=== PATIENT | male | born 1960 | race Caucasian/White ===

== ENCOUNTER 2023-05-31 10:14 | Inpatient (IN) | payer OTHER, SELFPAY ==
[2023-05-31] VITALS (9 sets, daily range): BP systolic 102–167; BP diastolic 56–89; PULSE 72–87; RESP 15–18; TEMP 36.7–37.3; O2SAT 95–99; BMI 29.0; BMI 28.8
[2023-05-31 10:43] LABS: Add Manual Diff / Slide Review NO; Basophils Absolute Auto 0 /uL (0-100); Basophils Percent Auto 0.4 % (0-2); Eosinophils Absolute Auto 0 /uL (0-450); Hematocrit 38.8 % (41-53); Hemoglobin 13.4 g/dL (13.5-17.5); Lymphocytes Absolute Auto 1000 /uL (1100-4500); Lymphocytes Percent Auto 9.2 % (25-40); Mean Corpuscular HGB Conc 34.5 % (30-36); Mean Corpuscular Hemoglobin 31.3 PG (26-34); Mean Corpuscular Volume 90.7 fL (80-100); Monocytes Absolute Auto 800 /uL (0-900); Monocytes Percent Auto 8.1 % (3-14); Neutrophils Absolute Auto 8600 /uL (1500-7000); Neutrophils Percent Auto 82.3 % (50-75); Platelet Count 195 X10^3/uL (150-400); Red Blood Cell Count 4.28 X10^6/uL (4.5-5.9); Red Cell Distribution Width 12.9 % (11.6-14.8); White Blood Cell Count 10.4 X10^3/uL (4.5-11.0)
[2023-05-31 10:53] LABS: Alanine Aminotransferase 38 IU/L (<50); Albumin 4.5 g/dL (3.5-5.0); Albumin Globulin Ratio 1.4 (1.0-2.8); Alkaline Phosphatase 53 U/L (38-126); Aspartate Aminotransferase 40 IU/L (17-59); BUN Creatinine Ratio 26.7 (6-22); Bilirubin Total 0.4 mg/dL (0.2-1.3); Blood Urea Nitrogen 20 mg/dL (9-20); Calcium 8.9 mg/dL (8.4-10.2); Carbon Dioxide 31 mmol/L (22-32); Chloride 100 mmol/L (98-107); Estimated Glomerular Filt Rate > 60 mL/min (>60); Globulin 3.2 g/dL (1.7-4.1); Glucose 105 mg/dL (80-110); HEMOLYSIS < 15 (0-50); Lipase 187 U/L (23-300); Potassium 4.5 mmol/L (3.4-5.1); Sodium 136 mmol/L (137-145); Total Protein 7.7 g/dL (6.3-8.2)
--- NOTE | 2023-05-31 11:00 | PC.NURSE ---
Katherien with [employer] on the phone asking for update about patient. asked patient and he is okay if we share information with them for his work. 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 informed her he was sent by walk in clinic due to need for imaging. we have only collected blood work and are waiting for provider to go into room and exam patient at this moment.
--- NOTE | 2023-05-31 13:55 | ED_ITS ---
HPI - Abdominal Pain General Chief Complaint: Abdominal Pain Stated Complaint: central ABD pain Time Seen by Provider: 05/31/23 13:55 Source: patient Mode of arrival: Ambulatory Limitations: no limitations History of Present Illness HPI narrative: 63-year-old male with history of diabetes and MS, patient presents today states he had onset of nausea and vomiting about 15 minutes after midnight, abdominal pain which she describes as sort of periumbilical still present but improved. He states it was 7/10 he put a 5-10 currently. He states is a little bit down towards the suprapubic area. Denies any fevers or chills. Denies any diarrhea constipation had been stooling regularly. Denies dysuria urgency or frequency. No back or flank pain. No syncope or lightheadedness. No fevers chills or sweats. No known sick contacts. Patient states he has not had any major surgeries. Patient has no known drug allergies. Occasionally chews tobacco, no alcohol, no illicit. Patient's primary care is in [facility] in [place]. He lives in [place]. Related Data Home Medications Medication Instructions Recorded Confirmed blood-glucose sensor (Dexcom G6 05/31/23 05/31/23 Sensor device) blood-glucose transmitter (Dexcom #1 ea 05/31/23 05/31/23 G6 Transmitter device) insulin aspart U-100 100 unit/mL 0 - 8 unit SUBCUT DAILY 05/31/23 05/31/23 (3 mL) subcutaneous pen insulin glargine-yfgn 100 unit/mL 42 unit SUBCUT QPM 05/31/23 05/31/23 (3 mL) subcutaneous pen (Semglee (insulin glargine-yfgn) Pen) interferon beta-1b 0.3 mg 0.3 mg SUBCUT DAILY 05/31/23 05/31/23 subcutaneous kit (Betaseron) lisinopril 5 mg tablet 5 mg PO DAILY 05/31/23 05/31/23 metformin 500 mg tablet 500 mg PO BID 05/31/23 05/31/23 pen needle, diabetic 31 gauge x #100 ea 05/31/23 05/31/23 Allergies Allergy/AdvReac Type Severity Reaction Status Date / Time No Known Drug Allergies Allergy Verified 05/31/23 10:33 Review of Systems Review of Systems ROS Unobtainable: All systems reviewed & are unremarkable except as noted in HPI and below Patient History Social History household members: none Smoking Status: Former smoker alcohol intake: current Smoking Status: Former smoker alcohol intake frequency: holidays/special occasions only Substance Use Type: does not use Exam Narrative Exam Narrative: GENERAL: Alert and oriented x three, well-nourished male in mild distress. Patient was sleeping initially awakens easily. HEENT: Head normocephalic, atraumatic, EOMI, pupils reactive, face symmetric, moist mucous membranes NECK: Supple, full range of motion CARDIOVASCULAR: Regular rate and rhythm without murmurs, rubs or gallops. RESPIRATORY: Breath sounds equal bilaterally, no wheezes rales or rhonchi. No tachypnea. No accessory muscle use. ABDOMEN: Soft, positive right lower quadrant tenderness. Normoactive bowel sounds all 4 quadrants. No guarding or rebound, rigidity, no mass, nondistended. No pulsatile mass or bruit. : No CVA tenderness EXTREMITIES: Normal range of motion, no clubbing or edema. Neurovascularly intact. Normal gait. NEUROLOGICAL: Cranial nerves II through XII grossly intact. Moving all extremities SKIN: Warm, dry, no petechiae, no rashes or lesions. Initial Vital Signs Initial Vital Signs: Vital Signs Temperature 98.1 F 05/31/23 10:15 Pulse Rate 87 05/31/23 10:15 Respiratory Rate 15 05/31/23 10:15 Blood Pressure 127/87 05/31/23 10:15 Pulse Oximetry 98 05/31/23 10:15 Oxygen Delivery Method Room Air 05/31/23 10:15 Course Orders Ordered: ED Orders 05/31/23 14:24 CT abdomen pelvis w con Stat Acetaminophen (Acetaminophen 325 Mg Tablet) 650 mg PO Q6H [facility] Last Admin: 05/31/23 17:09 Dose: 650 mg Documented By: SB Celecoxib (Celecoxib 200 Mg Capsule) 200 mg PO BID [facility] Lactated Ringer's (Lactated Ringers) 1,000 mls @ 125 mls/hr IV CONT LEONCIO Last Infusion: 05/31/23 16:13 Dose: 0 mls/hr Documented By: Infusion: 05/31/23 16:06 Dose: 0 mls/hr Documented By: Admin: 05/31/23 16:06 Dose: 125 mls/hr Documented By: ABDELRAHMAN Sodium Chloride (Normal Saline 0.9%) 1,000 mls @ 100 mls/hr IV CONT LEONCIO Last Admin: 05/31/23 17:23 Dose: 100 mls/hr Documented By: Infusion: 05/31/23 17:23 Dose: 100 mls/hr Documented By: Admin: 05/31/23 17:08 Dose: 100 mls/hr Documented By: ROMINA Piperacillin Sod/Tazobactam (Sod 3.375 gm/ Sodium Chloride) 100 mls @ 25 mls/hr IV Q8H [facility] Insulin Human Regular (Insulin Regular 100 Unit/Ml 3 Ml Vial) 0 unit SUBCUT Q6H [facility]; Protocol Last Admin: 05/31/23 17:23 Dose: Not Given Documented By: ROMINA Lisinopril (Lisinopril 5 Mg Tablet) 5 mg PO DAILY [facility] Metformin HCl (Metformin Hcl 500 Mg Tablet) 500 mg PO BID [facility] Morphine Sulfate (Morphine 4 Mg/Ml Inj) 3 mg IV Q4HR PRN PRN Reason: Pain, Severe (7-10) Naloxone HCl (Naloxone 0.4 Mg/Ml Vial) 0.2 mg IV Q2MIN PRN PRN Reason: Opiate Reversal Ondansetron HCl (Ondansetron 4 Mg/2 Ml Inj) 4 mg IV NOW PRN PRN Reason: Nausea And Vomiting Ondansetron HCl (Ondansetron 4 Mg/2 Ml Inj) 4 mg IV Q8HR PRN PRN Reason: Nausea And Vomiting Oxycodone HCl (Oxycodone Ir 5 Mg Tablet) 5 mg PO Q3H PRN PRN Reason: Pain, Moderate (4-6) Last Admin: 05/31/23 17:17 Dose: 5 mg Documented By: ROMINA Pantoprazole Sodium (Pantoprazole Dr 20 Mg Tablet) 20 mg PO 0600 [facility] Last Admin: 05/31/23 17:17 Dose: 20 mg Documented By: ROMINA Discontinued Medications Piperacillin Sod/Tazobactam (Sod 4.5 gm/ Sodium Chloride) 100 mls @ 200 mls/hr IV NOW ONE Stop: 05/31/23 15:11 Last Infusion: 05/31/23 16:25 Dose: 0 mls/hr Documented By: Admin: 05/31/23 15:46 Dose: 200 mls/hr Documented By: SPF Vital Signs Vital signs: Vital Signs - 8 hr 05/31/23 14:50 05/31/23 14:52 05/31/23 14:52 Pulse Rate 77 75 Blood Pressure 159/89 H Pulse Oximetry 96 99 Oxygen Delivery Method Room Air 05/31/23 15:00 05/31/23 15:00 Pulse Rate 72 Blood Pressure 150/81 H Pulse Oximetry 97 Oxygen Delivery Method MDM - Abdominal Pain Lab Data 05/31/23 10:27 05/31/23 10:27 Labs: Lab Results 05/31/23 05/31/23 Range/Units 10:27 10:27 WBC 10.4 (4.5-11.0) X10^3/uL RBC 4.28 L (4.5-5.9) X10^6/uL Hgb 13.4 L (13.5-17.5) g/dL Hct 38.8 L (41-53) % MCV 90.7 (80-100) fL MCH 31.3 (26-34) PG MCHC 34.5 (30-36) % RDW 12.9 (11.6-14.8) % Plt Count 195 (150-400) X10^3/uL Neut % (Auto) 82.3 H (50-75) % Lymph % (Auto) 9.2 L (25-40) % [place] % (Auto) 8.1 (3-14) % Eos % (Auto) 0.0 L (2-4) % Baso % (Auto) 0.4 (0-2) % Neut # (Auto) 8600 H (7542-7135) /uL Lymph # (Auto) 1000 L (1065-1773) /uL [place] # (Auto) 800 (0-900) /uL Eos # (Auto) 0 (0-450) /uL Baso # (Auto) 0 (0-100) /uL Sodium 136 L (137-145) mmol/L Potassium 4.5 (3.4-5.1) mmol/L Chloride 100 (98-107) mmol/L Carbon Dioxide 31 (22-32) mmol/L BUN 20 (9-20) mg/dL Creatinine 0.75 (0.66-1.25) mg/dL Estimated GFR > 60 (>60) mL/min BUN/Creatinine Ratio 26.7 H (6-22) Glucose 105 (80-110) mg/dL Calcium 8.9 (8.4-10.2) mg/dL Total Bilirubin 0.4 (0.2-1.3) mg/dL AST 40 (17-59) IU/L ALT 38 (<50) IU/L Alkaline Phosphatase 53 (38-126) U/L Total Protein 7.7 (6.3-8.2) g/dL Albumin 4.5 (3.5-5.0) g/dL Globulin 3.2 (1.7-4.1) g/dL Albumin/Globulin Ratio 1.4 (1.0-2.8) Lipase 187 (23-300) U/L Point of care testing: Point of Care Testing Glucose POC 90 Urine Dip Bedside Urine Glucose Negative Bedside Urine Bilirubin - Negative Bedside Urine Ketone +/- 5 Urine Specific [place] 1.025 Bedside Urine Occult Blood - Negative Bedside Urine pH 6.0 Bedside Urine Protein - Negative Bedside Urine Urobilinogen - Negative Bedside Urine Nitrite - Negative Bedside Urine Leukocytes - Negative Esterase Imaging Data CT scan - abdomen/pelvis: Radiologist's Impression: Chester Robertson??63??M??1960 ? Allergy/Adv: No Known Drug Allergies Close Abdomen/Pelvis CT (Signed) Francine Cohenic - 05/31/23 [place] [address] CT Scan Report Signed Patient: Chester Robertson MR#: [id number] : 1960 Acct:[id number] Age/Sex: 63 / M Date of Service: 05/31/23 Loc: ED Accession Number: [id number] ?? Procedure: CT abdomen pelvis w con Ordering Provider: Lucretia Altman D.O. PROCEDURE:? CT ABDOMEN PELVIS W CON ? INDICATIONS:? n/v/abd pain, +RLQ ? TECHNIQUE:? After the administration of intravenous contrast, axial sections acquired from the lung bases to the pubic symphysis.? Coronal and sagittal reformats were performed.? For radiation dose reduction, the following was used:? automated exposure control, adjustment of mA and/or kV according to patient size.? ? COMPARISON:? None. ? FINDINGS:? Image quality:? Excellent.? ? Lung bases:? Unremarkable. Heart:? No significant findings. ? ABDOMEN: Liver:? Unremarkable.? ? Gallbladder:? Unremarkable.? ? Biliary ducts:? Unremarkable.? ? Pancreas:? Unremarkable.? ? Spleen:? Unremarkable.? ? Adrenal Glands:? Unremarkable.? ? Kidneys and Ureters:? Unremarkable.? ? ? Stomach and Bowel:? Mild diverticulosis without evidence of diverticulitis.? Acute appendicitis.? Extensive inflammatory change in the adjacent fat suggests possible rupture.? There is a small amount of fluid tracking inferior to the appendix. Peritoneum:? There is minimal fluid tracking along the general vicinity of the appendix.? No free air.? ? Ventral Wall: ? No hernias.? Abdominal Nodes:? No retroperitoneal or mesenteric adenopathy by size criteria.? Vessels:? Aorta and inferior vena cava are normal in size.? ? PELVIS: Pelvic Organs:? Unremarkable.? ? Bladder:? Unremarkable.? ? Pelvic Nodes: No enlarged lymph nodes.? Miscellaneous: No hernias are seen. ? ? ? Bones:? Mild lumbar degenerative change.? No lytic or blastic bony lesions.? No compression fractures. ? ? IMPRESSION:? Acute appendicitis, likely recently ruptured.? The suggestion of rupture is based on inflammation and fluid adjacent to the appendix.? There is no adjacent free air. ? ? Dictated by: Waldo Cohen M.D. on 05/31/2023 at 15:02 ? ? Approved by: Waldo Cohen M.D. on 05/31/2023 at 15:06?? ECG Data Attestation: I personally reviewed and interpreted this ECG as follows: Interpretation: Sinus rhythm rate of 73 NH 146 QRS of 112 QTC 451[address] No acute ST elevation or depression noted. [facility] Narrative Medical decision making narrative: 63-year-old male presents with sudden onset nausea and vomiting overnight abdominal pain. Patient is quite tender in the right lower quadrant examination, no back or flank pain, labs show a white count of 10 hemoglobin 13.4, crit 38 normal platelets at 195. Sodium is 136 normal electrolytes, renal function BUN normal with negative LFTs. Point of care urine is negative except for 1+ ketones. Patient's has pretty localized tenderness in the right lower quadrant. He states he does still have his appendix. Discussed with patient would recommend CT imaging to evaluate. Patient's glucose was 60 arrival, he felt a little bit ill so was given Zofran, was given juice and ate a kind bar patient felt much improved. He has not had anymore vomiting since then. This was upon arrival. Patient's CT abdomen pelvis shows appendicitis possible rupture. I spoke with Dr. Clark who accepts for admission. She discussed with patient at this time they are going to continue with IV antibiotics. Discharge Plan Departure Patient Disposition: Admitted As Inpatient Clinical Impression: Appendicitis Admit Date/Time: 05/31/23 15:13 Admit Provider: Zaira Clark
--- NOTE | 2023-05-31 14:24 | DI.CT.S_ITS ---
PROCEDURE: CT ABDOMEN PELVIS W CON INDICATIONS: n/v/abd pain, +RLQ TECHNIQUE: After the administration of intravenous contrast, axial sections acquired from the lung bases to the pubic symphysis. Coronal and sagittal reformats were performed. For radiation dose reduction, the following was used: automated exposure control, adjustment of mA and/or kV according to patient size. COMPARISON: None. FINDINGS: Image quality: Excellent. Lung bases: Unremarkable. Heart: No significant findings. ABDOMEN: Liver: Unremarkable. Gallbladder: Unremarkable. Biliary ducts: Unremarkable. Pancreas: Unremarkable. Spleen: Unremarkable. Adrenal Glands: Unremarkable. Kidneys and Ureters: Unremarkable. Stomach and Bowel: Mild diverticulosis without evidence of diverticulitis. Acute appendicitis. Extensive inflammatory change in the adjacent fat suggests possible rupture. There is a small amount of fluid tracking inferior to the appendix. Peritoneum: There is minimal fluid tracking along the general vicinity of the appendix. No free air. Ventral Wall: No hernias. Abdominal Nodes: No retroperitoneal or mesenteric adenopathy by size criteria. Vessels: Aorta and inferior vena cava are normal in size. PELVIS: Pelvic Organs: Unremarkable. Bladder: Unremarkable. Pelvic Nodes: No enlarged lymph nodes. Miscellaneous: No hernias are seen. Bones: Mild lumbar degenerative change. No lytic or blastic bony lesions. No compression fractures. IMPRESSION: Acute appendicitis, likely recently ruptured. The suggestion of rupture is based on inflammation and fluid adjacent to the appendix. There is no adjacent free air. Dictated by: Waldo Cohen M.D. on 05/31/2023 at 15:02 Approved by: Waldo Cohen M.D. on 05/31/2023 at 15:06
[2023-05-31] MEDS: PIPERACILLIN/TAZO 4.5 GM in SODIUM CHLORIDE 0.9% 100 ML IV (15:46)
[2023-05-31] MEDS: LACTATED RINGERS 1,000 ML 125 ML IV (16:06)
[2023-05-31] MEDS: SODIUM CHLORIDE 0.9% 1,000 ML 100 ML IV ×2 (17:08→17:23)
[2023-05-31] MEDS: ACETAMINOPHEN 325 MG TABLET 650 MG PO ×2 (17:09→22:39)
[2023-05-31] MEDS: OXYCODONE IR 5 MG TABLET PO (17:17)
[2023-05-31] MEDS: PANTOPRAZOLE DR 20 MG TABLET PO (17:17)
--- NOTE | 2023-05-31 17:39 | P.HP_ITS ---
History of Present Illness History of Present Illness Date Patient Seen: 05/31/23 Time Patient Seen: 16:00 Date of Onset of Symptoms: 05/30/23 Chief complaint: central ABD pain Narrative: Patient reports awakened after midnight with abdominal pain, central, intense w/o relief. H/o MS and insulin dependent diabetes. Presented hypoglycemic. CT scan reviewed and I agree with preforated appendicitis, no fecal lith. No abscess, perforation contained. [facility] Social History household members: none Smoking Status: Former smoker alcohol intake: current Meds Home Medications and Allergies Home Medications Medication Instructions Recorded Confirmed Type blood-glucose sensor (Dexcom G6 05/31/23 05/31/23 History Sensor device) blood-glucose transmitter (Dexcom #1 ea 05/31/23 05/31/23 History G6 Transmitter device) insulin aspart U-100 100 unit/mL 0 - 8 unit SUBCUT DAILY 05/31/23 05/31/23 History (3 mL) subcutaneous pen insulin glargine-yfgn 100 unit/mL 42 unit SUBCUT QPM 05/31/23 05/31/23 History (3 mL) subcutaneous pen (Semglee (insulin glargine-yfgn) Pen) interferon beta-1b 0.3 mg 0.3 mg SUBCUT DAILY 05/31/23 05/31/23 History subcutaneous kit (Betaseron) lisinopril 5 mg tablet 5 mg PO DAILY 05/31/23 05/31/23 History metformin 500 mg tablet 500 mg PO BID 05/31/23 05/31/23 History pen needle, diabetic 31 gauge x #100 ea 05/31/23 05/31/23 History Allergies Allergy/AdvReac Type Severity Reaction Status Date / Time No Known Drug Allergies Allergy Verified 05/31/23 10:33 Review of Systems Review of Systems ROS: Yes All systems reviewed with the patient and are negative except as otherwise documented Exam Vital Signs (past 8 hours): - 05/31/23 10:15 05/31/23 11:19 05/31/23 11:19 Temperature 98.1 F Pulse Rate 87 77 Respiratory Rate 15 Blood Pressure 127/87 131/77 Pulse Oximetry 98 96 Oxygen Delivery Method Room Air 05/31/23 14:50 05/31/23 14:52 05/31/23 14:52 Temperature Pulse Rate 77 75 Respiratory Rate Blood Pressure 159/89 H Pulse Oximetry 96 99 Oxygen Delivery Method Room Air 05/31/23 15:00 05/31/23 15:00 05/31/23 15:30 Temperature Pulse Rate 72 77 Respiratory Rate Blood Pressure 150/81 H Pulse Oximetry 97 98 Oxygen Delivery Method 05/31/23 15:53 05/31/23 15:53 05/31/23 16:00 Temperature Pulse Rate 74 Respiratory Rate Blood Pressure 167/79 H 163/85 H Pulse Oximetry 99 Oxygen Delivery Method 05/31/23 16:00 Temperature Pulse Rate 72 Respiratory Rate Blood Pressure Pulse Oximetry 98 Oxygen Delivery Method Room Air Oxygen Delivery Method Room Air Narrative Exam Narrative: 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, lives in [facility] General: cooperative, healthy appearing and comfortable Nutritional Appearance: average body habitus Orientation: alert, awake and oriented x3 HENMT Head: normocephalic and atraumatic Ears: hearing grossly normal bilaterally Eyes General: appearance normal, both eyes and all related structures Sclera: sclerae normal Neck Neck: normal visual inspection and trachea midline Resp Effort & Inspection: normal respiratory effort and able to speak in complete sentences Cardio Rate: regular rate Rhythm: regular rhythm GI Palpation: soft Other: no guarding, RLQ tenderness Skin General: turgor normal Rashes: no rashes Neuro Cognition: normal cognition Psych Affect: normal affect and animated Attitude: cooperative Judgment: judgment good Objective Labs 05/31/23 10:27 05/31/23 10:27 Labs: Laboratory Results - last 24 hr 05/31/23 05/31/23 10:27 10:27 WBC 10.4 RBC 4.28 L Hgb 13.4 L Hct 38.8 L MCV 90.7 MCH 31.3 MCHC 34.5 RDW 12.9 Plt Count 195 Neut % (Auto) 82.3 H Lymph % (Auto) 9.2 L [place] % (Auto) 8.1 Eos % (Auto) 0.0 L Baso % (Auto) 0.4 Neut # (Auto) 8600 H Lymph # (Auto) 1000 L [place] # (Auto) 800 Eos # (Auto) 0 Baso # (Auto) 0 Sodium 136 L Potassium 4.5 Chloride 100 Carbon Dioxide 31 BUN 20 Creatinine 0.75 Estimated GFR > 60 BUN/Creatinine Ratio 26.7 H Glucose 105 Calcium 8.9 Total Bilirubin 0.4 AST 40 ALT 38 Alkaline Phosphatase 53 Total Protein 7.7 Albumin 4.5 Globulin 3.2 Albumin/Globulin Ratio 1.4 Lipase 187 Assessment & Plan Assessment & Plan narrative: Perforated appendicitis likely masked discomfort due to MS and abdominal pain really started after perforation. Has insulin dependent diabetes. Hypoglycemia corrected with juice. Plan: informed discussion of medical management vs surgery and even delayed (interval appendectomy). He would like to try medical management in order to go back to the boat. Admit for IV antibiotics, repeat labs and exam Quality VTE Deep Vein Thrombosis/Pulmonary Embolism Present on Admission: No
[2023-05-31] MEDS: PIPERACILLIN/TAZO 3.375 GM in SODIUM CHLORIDE 0.9% 100 ML IV (20:30)
[2023-05-31] MEDS: CELECOXIB 200 MG CAPSULE PO (20:30)
[2023-05-31] MEDS: METFORMIN HCL 500 MG TABLET PO (20:30)
[2023-06-01] VITALS (7 sets, daily range): BP systolic 92–135; BP diastolic 52–81; PULSE 56–77; RESP 16–20; TEMP 35.7–36.8; O2SAT 95–98
[2023-06-01] MEDS: PIPERACILLIN/TAZO 3.375 GM in SODIUM CHLORIDE 0.9% 100 ML IV ×3 (04:14→20:15)
[2023-06-01] MEDS: ACETAMINOPHEN 325 MG TABLET 650 MG PO ×3 (04:14→16:53)
[2023-06-01] MEDS: PANTOPRAZOLE DR 20 MG TABLET PO (05:51)
[2023-06-01 06:33] LABS: Add Manual Diff / Slide Review NO; Basophils Absolute Auto 100 /uL (0-100); Basophils Percent Auto 0.6 % (0-2); Eosinophils Absolute Auto 0 /uL (0-450); Eosinophils Percent Auto 0.3 % (2-4); Hematocrit 36.8 % (41-53); Hemoglobin 12.6 g/dL (13.5-17.5); Lymphocytes Absolute Auto 1200 /uL (1100-4500); Lymphocytes Percent Auto 13.3 % (25-40); Mean Corpuscular HGB Conc 34.2 % (30-36); Mean Corpuscular Hemoglobin 31.2 PG (26-34); Mean Corpuscular Volume 91.4 fL (80-100); Monocytes Absolute Auto 1000 /uL (0-900); Monocytes Percent Auto 10.8 % (3-14); Neutrophils Absolute Auto 7000 /uL (1500-7000); Platelet Count 159 X10^3/uL (150-400); Red Blood Cell Count 4.03 X10^6/uL (4.5-5.9); Red Cell Distribution Width 13.2 % (11.6-14.8); White Blood Cell Count 9.3 X10^3/uL (4.5-11.0)
[2023-06-01] MEDS: lisinopriL 5 MG TABLET PO (08:26)
[2023-06-01] MEDS: METFORMIN HCL 500 MG TABLET PO ×2 (08:27→21:01)
[2023-06-01] MEDS: CELECOXIB 200 MG CAPSULE PO ×2 (08:31→21:01)
[2023-06-01] MEDS: OXYCODONE IR 5 MG TABLET PO ×2 (08:31→16:53)
--- NOTE | 2023-06-01 11:13 | PM.PN.1 ---
Subjective Subjective Date Patient Seen: 06/01/23 Time Patient Seen: 11:13 Interval history: pain is some better. Exam Vital Signs (past 8 hours): - 06/01/23 04:19 06/01/23 08:26 06/01/23 08:00 Temperature 97.1 F L 98.0 F Pulse Rate 56 L 75 75 Respiratory Rate 18 17 Blood Pressure 96/52 L 112/75 112/75 Pulse Oximetry 98 97 Oxygen Flow Rate 0 0 Oxygen Delivery Method Room Air Oxygen Flow Rate 0 Narrative Exam Narrative: abdomen soft, mild RLQ tenderness, no guarding Objective Labs 06/01/23 06:20 05/31/23 10:27 Labs: Laboratory Results - last 24 hr 06/01/23 06:20 WBC 9.3 RBC 4.03 L Hgb 12.6 L Hct 36.8 L MCV 91.4 MCH 31.2 MCHC 34.2 RDW 13.2 Plt Count 159 Neut % (Auto) 75.0 Lymph % (Auto) 13.3 L [place] % (Auto) 10.8 Eos % (Auto) 0.3 L Baso % (Auto) 0.6 Neut # (Auto) 7000 Lymph # (Auto) 1200 [place] # (Auto) 1000 H Eos # (Auto) 0 Baso # (Auto) 100 PFSH Social History household members: none Smoking Status: Former smoker alcohol intake: current Assessment & Plan Assessment and plan (1) Appendicitis: Status: Acute Assessment & Plan narrative: Ruptured appendicitis that appears to be responding to antibiotics with the exception of a more pronounced decrease in pain. He has only been on antibiotics for 12 hours now. Plan: continue antibiotics and re evaluate in the am. Time Spent With Patient Time with patient: less than 30 minutes Quality VTE Deep Vein Thrombosis/Pulmonary Embolism Present on Admission: No
[2023-06-01] MEDS: INSULIN LISPRO 100 UNIT/ML 3ML VIAL SUBCUT ×3 (11:27→21:02)
[2023-06-01] MEDS: SODIUM CHLORIDE 0.9% 1,000 ML 100 ML IV (16:54)
[2023-06-01] MEDS: INSULIN GLARGINE 100 UNIT/ML 3ML PEN 42 UNIT SUBCUT (21:02)
[2023-06-02] VITALS (13 sets, daily range): BP systolic 102–156; BP diastolic 53–84; PULSE 60–86; RESP 12–18; TEMP 36.3–37.1; O2SAT 94–99
--- NOTE | 2023-06-02 | PATH_ITS ---
[facility] Accession Number: [id number] No. of containers..01 Tissue . 01 Material submitted: . appendix - APPENDIX . 01 Diagnosis: Vermiform Appendix, Appendectomy: Acute suppurative appendicitis and periappendicitis with probable perforation site. Negative for neoplasia. MRV 06/14/2023 1359 Local . 01 Electronically signed: . Zaira Phillips MD, Pathologist NPI- [id number] . 01 Gross description: . The specimen is received in formalin labeled with the patient's name, , and appendix consists of multiple fragments of possible appendix with no grossly identified margin or distal tip, aggregating to 6.2 x 5.9 x 2.1 cm. Sectioning reveals a staple line with attached presumed lumen consistent with possible margin that is inked blue. The lumen is discontinuous with minimal brown semi-solid contents, and averages 0.3 cm in diameter. The bhatti are lu-alonso, diffusely disrupted, average 0.3 cm thick with no discrete lesions identified. Jet Pilot sections to include the presumed margin, one-half of the possible bisected distal tip, and cross section are submitted in cassette A1. ([id number]) /MRV 06/06/2023 1800 Local . 01 Pathologist provided ICD-10: K35.80 . 01 CPT . 533669 Specimen Comment: A courtesy copy of this report has been sent to [phone] Performed at: 01 [facility] [address] [place] [address] [id number] MD Constantine Perez MD Phone: [phone]
[2023-06-02] MEDS: SODIUM CHLORIDE 0.9% 1,000 ML 100 ML IV ×2 (00:03→14:56)
--- NOTE | 2023-06-02 00:58 | PC.NURSE ---
Patient is alert and oriented. Breath sounds CTA with RA sat of 95%. HRR. Denies nausea. BT present and abdomen is soft but tender over RLQ; describes pain as sharp but intermittent and declined offer of pain medication although rates pain as 3/10. Requested not to be awakened for 2230 dose of tylenol. Denies dysuria with urination. Independent with mobility and is steady on feet; declines use of SCD's. Fall risk score is moderate but patient is oriented and steady on feet so alarm is not in use at this time. Verbalizes understanding of being NPO after 0000 for surgery in a.m.
[2023-06-02] MEDS: PIPERACILLIN/TAZO 3.375 GM in SODIUM CHLORIDE 0.9% 100 ML IV (04:09)
[2023-06-02 06:47] LABS: Hematocrit 35.7 % (41-53); Hemoglobin 12.4 g/dL (13.5-17.5); Mean Corpuscular HGB Conc 34.7 % (30-36); Mean Corpuscular Hemoglobin 31.7 PG (26-34); Mean Corpuscular Volume 91.4 fL (80-100); Platelet Count 155 X10^3/uL (150-400); Red Blood Cell Count 3.91 X10^6/uL (4.5-5.9); White Blood Cell Count 7.6 X10^3/uL (4.5-11.0)
[2023-06-02 08:29] LABS: Neutrophils Absolute Manual 6460 /uL (3000-5900); RBC Morphology Normal Morphology; Total Cells Counted 100
--- NOTE | 2023-06-02 09:16 | PM.PN.1 ---
Subjective Subjective Date Patient Seen: 06/02/23 Time Patient Seen: 09:16 Interval history: symptoms not markedly improved. Exam Vital Signs (past 8 hours): - 06/02/23 04:20 Temperature 98.4 F Pulse Rate 74 Respiratory Rate 18 Blood Pressure 128/76 Pulse Oximetry 96 Oxygen Flow Rate 0 Oxygen Delivery Method Room Air Oxygen Flow Rate 0 Narrative Exam Narrative: tenderness RLQ persist but slightly better Objective Labs 06/02/23 06:31 05/31/23 10:27 Labs: Laboratory Results - last 24 hr 06/02/23 06:31 WBC 7.6 RBC 3.91 L Hgb 12.4 L Hct 35.7 L MCV 91.4 MCH 31.7 MCHC 34.7 RDW 13.0 Plt Count 155 Total Counted 100 Seg Neutrophils % 85.0 H Lymphocytes % (Manual) 8.0 L Monocytes % (Manual) 6.0 Basophils % (Manual) 1.0 Neutrophils # (Manual) 6460 H RBC Morphology Normal morphology PFSH Social History household members: none Smoking Status: Former smoker alcohol intake: current Assessment & Plan Assessment & Plan narrative: ruptured appendicitis not responding fully to medical management OR for lap appy Time Spent With Patient Time with patient: less than 30 minutes Quality VTE Deep Vein Thrombosis/Pulmonary Embolism Present on Admission: No
--- NOTE | 2023-06-02 11:11 | SUR.OPER ---
Supine on padded OR bed, head on pillow, arms secured on padded arm boards at <90 degrees abduction, legs uncrossed, safety belt at thigh, tape over blanket over lower legs.
[2023-06-02] MEDS: BUPIVACAINE 0.25% (PF) 30 ML, EPINEPHrine 0.15 MG INJ (11:42)
--- NOTE | 2023-06-02 11:56 | P.OP_ITS ---
Operative Date/Time/Diagnoses Date of procedure: 06/02/23 Time of procedure: 11:56 Pre-op diagnosis: Ruptured appendicitis Post-op diagnosis: same Procedure & Clinicians Procedure: Laparoscopic appendectomy Same procedure as scheduled: Yes Indications: Ruptured appendicitis Surgeon: Zaira Clark Click Yes if Unassisted: Yes Anesthesia Type: General Operative Notes Findings: Ruptured appendicitis, contained Closure Type: primary Specimen(s): other (Appendix) Applied: drain(s) (15 [place] Citizen round drain) Estimated Blood Loss (mL): 15 Blood products transfused: none Procedure in detail: Preop diagnosis: Ruptured appendicitis Postop diagnosis: Same Operative procedure: Laparoscopic appendectomy Surgeon: Mignon Clark MD Anesthetic: General with ET tube intubation along with local Findings: Contained perforated appendicitis Procedure: Patient placed in a supine position. Prepped and draped sterile fashion to expose his abdomen. Supraumbilical port site was placed using open technique a 12 mm port. Insufflation began all other ports were placed under direct vision including a 5 mm port in the suprapubic area and a 5 mm port in the left lateral abdomen. The appendix was identified and dissected from its lateral position bluntly, sharply, and with electrocautery. Once completely mobilized the base of the appendix was amputated with a blue load JESSIE stapling device. Hemostasis was achieved. Area was suctioned clear of any remaining clots, no irrigation used. The appendix was taken out in sections via a Endo- Catch bag. A 15. [place] Citizen Alvarez drain was placed into the pelvis draping up along the right colic gutter to the surgical site through the suprapubic port. Sutured to the skin with a 3-0 nylon. We then removed all ports and began closure. Closure consisted of interrupted 0 Vicryl fascial closure. Skin was closed with running 4-0 Vicryl. Steri-Strips and sterile dressings were placed. Patient was awakened, extubated, taken to recovery room in stable condition. Needle, ins trument, sponge counts were correct. Blood loss: 15 mL Specimen: Appendix Complications: none Post-operative Condition: stable Disposition: PACU
[2023-06-02] MEDS: LACTATED RINGERS 1,000 ML 43 ML IV (12:18)
--- NOTE | 2023-06-02 12:22 | CM.DANOTE ---
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 CM team will plan to follow closely in case any DC needs or concerns arise LAZARO Morfin Discharge Planning/Care Management CM Discharge Assessment Start: 06/01/23 14:49 Freq: Status: Active Protocol: Document 06/02/23 12:21 ERICA (Rec: 06/02/23 12:22 ERICA [id number]) Discharge Planning Assessment Assigned Truck Loader And Unloader LAZARO Clifton DPOA/Assigned Designee Name None Advance Directives? No History Provided By Patient,Medical Record Household Members none Type of transporation used prior to Drives own vehicle admit Independent with ADL's Yes Is patient alert and oriented? Yes Barriers to Discharge No Discharge Plan Home Transportation Arrangement Self, taxi, friend Referrals Initiated None needed
[2023-06-02] MEDS: AMOXICILLIN/CLAV 875/125 MG 1 TAB PO ×2 (12:56→20:52)
[2023-06-02] MEDS: OXYCODONE IR 5 MG TABLET PO ×2 (14:56→18:35)
[2023-06-02] MEDS: ACETAMINOPHEN 325 MG TABLET 650 MG PO (17:11)
[2023-06-02] MEDS: METFORMIN HCL 500 MG TABLET PO (17:11)
[2023-06-02] MEDS: INSULIN LISPRO 100 UNIT/ML 3ML VIAL SUBCUT ×2 (17:13→20:52)
[2023-06-02] MEDS: INSULIN GLARGINE 100 UNIT/ML 3ML PEN 42 UNIT SUBCUT (20:51)
[2023-06-02] MEDS: CELECOXIB 200 MG CAPSULE PO (20:52)
--- NOTE | 2023-06-02 22:53 | PC.NURSE ---
Patient is alert and oriented. Breath sounds CTA with RA sat of 94%. HRR. Denies nausea. BT hypoactive and has not yet passed flatus since return from surgery; has not had a BM since 05/30. At time of assessment patient's HARRISON drain was not compressed and unable to get it to hold compression. Dr. Clark was informed and order received to remove drain. Sutures were removed and drain removed with minimal discomfort and folded 2x2 applied w/Tegaderm over. Umbilical dressing is nearly saturated with serosanguinous drainage but without leakage. Had vicodin prior to shift change and stated pain was only 2/10 and requested not to be awakened for 0 scheduled tylenol. Has been independent with mobility and states he has been up walking in halls since return from surgery. Continues to decline use of SCD's. Fall risk score is moderate but alarm not in use as patient is independent and steady on feet.
[2023-06-03] MEDS: SODIUM CHLORIDE 0.9% 1,000 ML 100 ML IV (01:05)
[2023-06-03 02:25] VITALS: BP 119/69; PULSE 58; RESP 16; TEMP 35.8; O2SAT 96
[2023-06-03] MEDS: PANTOPRAZOLE DR 20 MG TABLET PO (06:18)
[2023-06-03] MEDS: OXYCODONE IR 5 MG TABLET PO ×3 (06:19→21:15)
[2023-06-03 08:23] VITALS: BP 144/78; PULSE 65
[2023-06-03] MEDS: METFORMIN HCL 500 MG TABLET PO ×2 (08:23→17:51)
[2023-06-03] MEDS: CELECOXIB 200 MG CAPSULE PO ×2 (08:23→21:15)
[2023-06-03] MEDS: AMOXICILLIN/CLAV 875/125 MG 1 TAB PO ×2 (08:23→21:15)
[2023-06-03] MEDS: INSULIN LISPRO 100 UNIT/ML 3ML VIAL SUBCUT ×4 (08:23→21:17)
[2023-06-03] MEDS: lisinopriL 5 MG TABLET PO (08:23)
[2023-06-03 08:55] VITALS: BP 144/78; PULSE 65; RESP 17; TEMP 36.7; O2SAT 99
--- NOTE | 2023-06-03 10:54 | P.PN_ITS ---
Subjective Subjective Date Patient Seen: 06/03/23 Time Patient Seen: 10:54 Interval history: s/p lap appy for ruptured appendicitis. Feeling better Exam Vital Signs (past 8 hours): - 06/03/23 08:23 06/03/23 08:39 06/03/23 08:55 Temperature 98.0 F Pulse Rate 65 65 Respiratory Rate 17 Blood Pressure 144/78 H 144/78 H Pulse Oximetry 99 Oxygen Delivery Method Room Air Oxygen Flow Rate 0 Oxygen Delivery Method Room Air Oxygen Flow Rate 0 Narrative Exam Narrative: Drain malfunctioned last night and was removed. Abdomen c/w post op expectations, no complications Objective Labs 06/02/23 06:31 05/31/23 10:27 [facility] Social History household members: none Smoking Status: Former smoker alcohol intake: current Assessment & Plan Assessment & Plan narrative: S/p lap appy for ruptured appendicitis Plan: Switch to po antibiotics with discharge tomorrow if continues to do well. Time Spent With Patient Time with patient: less than 30 minutes Quality VTE Deep Vein Thrombosis/Pulmonary Embolism Present on Admission: No
--- NOTE | 2023-06-03 12:50 | CM.DPC ---
DCP Discharge Per Surgeon, pt ambulating halls independently and medically stable to d/c home today with outpt f/u. Per RN, pt working on his d/c plan and getting back to his home in [place] and has some local supportive friends. SW met bedside with pt and explained role and discharge discharge orders currently placed for d/c today. Pt states he was hopeful to remain overnight to error on the side of caution. SW discussed need to medically justify remaining hospital level of care and determined to be medically stable but if he is feeling cautious then helped to brainstorm options of staying with his local friends for a night or two or a motel and if any concerns arise he could call the [facility]'s office directly. Pt acknowledged understanding and states he does not want to have to ask friends for help or to stay with them but states he will begin placing calls for plan of discharge this afternoon. SW will follow back up with him after lunch and pt's plan is to d/c and then likely take the [employer] back to [place] and he is not comfortable flying after being in the hospital. Per RN, pt is still working on plan for discharge today. Plan: SW to follow closely with pt after lunch time to confirm plan of discharge today and return to [place] and outpt f/u. LAZARO Feliz
[2023-06-03 15:00] VITALS: BP 128/73; PULSE 65; RESP 17; TEMP 36.3; O2SAT 98
[2023-06-03] MEDS: ACETAMINOPHEN 325 MG TABLET 650 MG PO ×2 (15:40→21:18)
[2023-06-03 20:33] VITALS: BP 128/80; PULSE 63; RESP 16; TEMP 36.3; O2SAT 97
[2023-06-03] MEDS: INSULIN GLARGINE 100 UNIT/ML 3ML PEN 42 UNIT SUBCUT (21:16)
[2023-06-04 02:15] VITALS: BP 107/67; PULSE 56; RESP 16; TEMP 36.4; O2SAT 99
[2023-06-04] MEDS: PANTOPRAZOLE DR 20 MG TABLET PO (06:07)
[2023-06-04 08:00] VITALS: BP 134/78; PULSE 56; RESP 17; TEMP 36.2; O2SAT 99
[2023-06-04] MEDS: METFORMIN HCL 500 MG TABLET PO (10:00)
[2023-06-04] MEDS: lisinopriL 5 MG TABLET PO (10:01)
[2023-06-04] MEDS: AMOXICILLIN/CLAV 875/125 MG 1 TAB PO (10:01)
[2023-06-04] MEDS: CELECOXIB 200 MG CAPSULE PO (10:02)
--- NOTE | 2023-06-04 11:20 | PM.DS.1 ---
History of Present Illness History of Present Illness Date Patient Seen: 06/04/23 Chief complaint: central ABD pain Narrative: Patient reports awakened after midnight with abdominal pain, central, intense w/o relief. H/o MS and insulin dependent diabetes. Presented hypoglycemic. CT scan reviewed and I agree with preforated appendicitis, no fecal lith. No abscess, perforation contained. Discharge Providers Provider Date of admission: 05/31/23 15:13 Discharge Date: 06/04/23 Primary care physician: Doctor Sandrine MD Discharge provider: Zaira Clark MD Summary Hospital Course Discharge Diagnosis: perforated appendicitis with incomplete response to medical management Hospital Course: Lap appy Status at Discharge Cognitive/behavioral status at discharge: at baseline, oriented Functional status at discharge: independent ambulation Overall status at discharge: patient is progressing back to baseline Time Spent with Patient Time spent: Less than 30 minutes Exam Vital Signs (past 8 hours): - 06/04/23 08:00 Temperature 97.1 F L Pulse Rate 56 L Respiratory Rate 17 Blood Pressure 134/78 Pulse Oximetry 99 Oxygen Flow Rate 0 Oxygen Delivery Method Room Air Oxygen Flow Rate 0 Narrative Exam Narrative: abd benign Objective Labs 06/02/23 06:31 05/31/23 10:27 PFSH Social History household members: none Smoking Status: Former smoker alcohol intake: current Discharge Assessment & Plan Assessment and Plan Assessment: S/p lap appy for ruptured appendicitis Plan of Treatment: Home on 5 days Augmentin No follow up needed. Discharge Plan Discharge Plan Patient Disposition: Home Discharge orders & Medications Prescriptions: New celecoxib [Celebrex] 200 mg Capsule 200 mg PO BID Qty: 10 0RF amoxicillin-pot clavulanate 875-125 mg Tablet 1 tab PO BID Qty: 10 0RF hydrocodone-acetaminophen 5-325 mg tablet 1 tab PO Q6H Qty: 14 0RF Continued Betaseron 0.3 mg kit 0.3 mg SUBCUT DAILY Patient Comments: [NO ORIGINAL SIG] insulin glargine-yfgn [Semglee(insulin glarg-yfgn)Pen] 100 unit/mL (3 mL) insulin pen 42 unit SUBCUT QPM insulin aspart U-100 100 unit/mL (3 mL) insulin pen 0 - 8 unit SUBCUT DAILY lisinopril 5 mg tablet 5 mg PO DAILY metformin 500 mg tablet 500 mg PO BID (DME) Dexcom G6 Transmitter Device See Rx Instructions .ROUTE [id number] Qty: 1 Rx Instructions: As directed (DME) pen needle, diabetic 31 gauge x 15/64 needle See Rx Instructions .ROUTE DAILY Qty: 100 Rx Instructions: As directed (DME) Dexcom G6 Sensor Device MISCELLANEOUS Q10D Follow up/Referrals: Miscellaneous,Doctor, MD [Primary Care Provider] - Diet/Activity/Treatments Diet: Diet as Tolerated Skin/Wound/Dressing Care Report to your healthcare provider any signs of infection, such as:: chills, fever, increased pain, unusual drainage and unusual redness Dressing: remove outer dressing in 24-48 hrs, leave steri strips for 10 days total. may shower Visit Report/Discharge Packet Instructions: DI for an Appendectomy, DI for Laparoscopy, [facility]: Wound Care Stand Alone Forms: Patient Portal/API, Stroke Signs & Symptoms, Surgery Discharge Discharge Data Primary Care Provider: Sandrine,Doctor Quality VTE Deep Vein Thrombosis/Pulmonary Embolism Present on Admission: No
--- NOTE | 2023-06-04 13:07 | CM.DPC ---
DCP Discharge Home Per Surgeon, pt remains medically stable to d/c home today and had bowel movement and will need outpt f/u after discharge. Per RN, pt has plan of d/c to [facility] today and then plans to still take the train back to [place] and RN received a call from pt's L&I assigned CM requesting faxed pwk to be completed by Surgeon prior to d/c. RN contacted Surgeon in the OR and aware of pwk and will review after current surgery for plan to still discharge today after L&I pwk completed. Plan: Patient to d/c today via friend POV and outpt f/u and no further SW needs at this time and pt plans to return to [place] home likely tomorrow via train. LAZARO Feliz
== END 2023-06-04 15:56 | disposition home or self-care (01) | DRG 233 ==
LOC: ED 13:55 → AC 15:14
PROVIDERS: Admitting Provider Surgery; Emergency Provider Emergency Medicine; Referring Provider Emergency Medicine; Visit Provider Surgery
PROC: 0DTJ4ZZ Resection of Appendix, Percutaneous Endoscopic Approach (ICD-10-PCS; CPT 44970; principal; 2023-06-02 10:45)
DX: K35.32 Acute appendicitis with perforation, localized peritonitis, and gangrene, without abscess (principal); E11.649 Type 2 diabetes mellitus with hypoglycemia without coma; G35 Multiple sclerosis; Z79.4 Long term (current) use of insulin; Z87.891 Personal history of nicotine dependence; Z79.84 Long term (current) use of oral hypoglycemic drugs
CPT/HCPCS: 36415; 44970; 74177; 80053; 81003; 82962; 83690; 85025; 93005; 96365; 99222; 99284; J0171; J1100; J1815; J2405; J2543; J2704; J3010; Q9967